=== PATIENT | female | born 1935 | race Caucasian/White ===

== ENCOUNTER → 2016-05-29 | Outpatient (CLI) | payer OTHER ==
[~2016-05-29] MED LIST: ADULT LOW DOSE81 MG PO; ALEVE220 M1 PO; ASPIR 8181 MG PO; BISCOLAX10 MG RC; CALCIUM 500 +1 EAC5 PO; CARDIZEM CD300 MG PO; CELEXA 10 MG TA10 M1 PO; CELEXA 20 MG TA20 MG PO; FLEXERIL PO; IRON325 M1 PO; LEVAQUIN 500 M500 M2 PO; LISINOPRIL10 MG PO; LISINOPRIL20 MG PO; MAGNESIUM100 MG PO; MELOXICAM7.5 MG PO; MOBIC15 MG PO; MULTIVITAMINS PO; NORCO 10-325 T1 EACH PO; NORVASC 5 MG TAB5 MG PO; OMEGA-31000 MG PO; PRAVACHOL40 MG PO; VITAMIN D1000 UNI1 PO; XARELTO10 MG PO; [UNRECOGNIZED DRUG - OTHER] PO
== END ==
LOC: RAD 04-25 11:22
DX: Z12.31 Encounter for screening mammogram for malignant neoplasm of breast (principal)

== ENCOUNTER 2017-04-17 12:53 | Inpatient (IN) | payer OTHER ==
[~2017-04-17] VITALS: Ht 154.9 cm; Wt 79.3 kg
--- NOTE | ~2017-04-17 | 2DMMODE ---
[facility] [address] [place] [address] 2 D/M-MODE ECHOCARDIOGRAM Name: JAMESON REEVES Room #: 419-P [facility] IN ..#: [id number] Admission: 04/17/17 Attend Phys: Gio Dudley, Discharge: Date of : 33 Date of Service: 04/18/17 1024 Report #: [id number] THIS REPORT FOR: //name// APPROVED REPORT Study performed: 04/18/2017 09:52:04 EXAM: Comprehensive 2D, Doppler, and color-flow Echocardiogram Patient Location: Echo lab Room #: 419 Status: routine BSA: 1.76 HR: 64 bpm BP: 158/78 mmHg Other Information Study Quality: Adequate Indications CVA. HX: TIAS, HTN, HLP Echo Enhancing Agent Indication: Rule out Shunt Agent(s) / Amount(s) Used: Agitated Saline 6 cc 2D Dimensions RVDd: 27.34 mm LVEF(%): 53.68 (>50%) IVSd: 10.16 (7-11mm) LVOT Diam: 20.19 (18-24mm) LVDd: 43.44 mm PWd: 8.88 (7-11mm) Ascending Ao: 37.57 (22-36mm) LVDs: 31.49 (25-40mm) Aortic Root: 36.26 mm Pathak's LVEF: 53.68 % Volumes Left Atrial Volume (Systole) Single Plane 4CH: 39.40 mL Single Plane 2CH: 44.73 mL LA ESV Index: 26.00 mL/m2 Aortic Valve AoV Peak Eddi.: 1.73 m/s AO Peak Gr.: 11.99 mmHg LVOT Max P.58 mmHg LVOT Max V: 1.28 m/s ARNAV Vmax: 2.38 cm2 [facility] [place] [address] 2 D/M-MODE ECHOCARDIOGRAM Name: JAMESON REEVES Room #: 419-P [facility] IN ..#: [id number] Admission: 04/17/17 Attend Phys: Gio Dudley, Discharge: Date of : 33 Date of Service: 04/18/17 [facility] Report #: [id number] Mitral Valve E/A Ratio: 0.7 MV Decel. Time: 297.39 ms MV E Max Eddi.: 0.90 m/s MV A Eddi.: 1.21 m/s MV PHT: 86.24 ms IVRT: 83.04 ms Pulmonary Valve PV Peak Eddi.: 1.07 m/s PV Peak Gr.: 4.56 mmHg Pulmonary Vein P Vein S: 0.74 m/s P Vein A: 0.36 m/s P Vein D: 0.49 m/s P Vein A Dur.: 124.6 msec P Vein S/D Ratio: 1.51 Tricuspid Valve TR Peak Eddi.: 2.25 m/s RAP Estimate: 5.00 mmHg TR Peak Gr.: 20.16 mmHg PA Pressure: 25.00 mmHg Left Ventricle The left ventricle is normal size. There is normal LV segmental wall motion. There is normal left ventricular wall thickness. Left ventricular systolic function is normal. LVEF is 60%. Mild diastolic dysfunction is present (impaired relaxation pattern). Right Ventricle The right ventricle is normal size. The right ventricular systolic function is normal. Atria The left atrium size is normal. No shunting noted by contrast bubble injection. The right atrium size is normal. Aortic Valve Aortic valve is grossly normal in structure. No aortic regurgitation is present. There is no aortic valvular stenosis. Mitral Valve Mitral valve leaflets are mildly thickened. Trace to mild mitral regurgitation. Tricuspid Valve The tricuspid valve is normal in structure. Trace tricuspid regurgitation. Estimated PAP is 25mmHg. [facility] [address] [place] [address] 2 D/M-MODE ECHOCARDIOGRAM Name: JAMESON REEVES Room #: 419-P [facility] IN ..#: [id number] Admission: 04/17/17 Attend Phys: Gio Dudley, Discharge: Date of : 33 Date of Service: 04/18/17 1024 Report #: [id number] Pulmonic Valve The pulmonary valve is normal in structure. Trace pulmonic regurgitation. Great Vessels The aortic root is normal in size. Ascending aorta measures at the upper limits of normal. IVC is normal in size and collapses >50% with inspiration. Pericardium There is no pericardial effusion. <Conclusion> Left ventricular systolic function is normal. There is normal LV segmental wall motion. LVEF is 60%. Mild diastolic dysfunction No shunting noted by contrast bubble injection. Aortic valve is grossly normal in structure. No aortic valvular stenosis or insufficiency. Mitral valve leaflets are mildly thickened. Mild mitral insufficiency Trace tricuspid regurgitation. Estimated pulmonary artery pressure of 25mmHg. There is no pericardial effusion. <ELECTRONICALLY SIGNED> By: Prashant Avalos MD, FACC 04/18/17 1024 1024 1024 Prashant Avalos MD, FACC /INF
--- NOTE | ~2017-04-17 | HC ---
[facility] [place] [address] CONSULTATION Name: JAMESON REEVES Room #: 419-P ADM IN M.R.#: [id number] Admission: 04/17/17 Attend Phys: Gio Dudley MD Discharge: Date of : 34 Report #: [id number] THIS REPORT FOR: //name// CC: Enrique Dudley DATE OF SERVICE: 04/17/2017 HISTORY OF PRESENT ILLNESS: This is an 81-year-old female patient who was evaluated by me for acute onset of short-term memory problems. The patient's speech was intact. It came spontaneously without any trauma. There was no associated focal motor deficit with it. The deficit was localized to short-term memory. REVIEW OF SYSTEMS: This patient had an episode of TIA. That mainly manifested at the left-sided numbness. She was worked up at [facility], I do not have any records. She used to be on aspirin and statin. Statin was recently discontinued because of muscle pain. She is otherwise functional. In fact, she was able to drive home after the onset of this memory disturbances. The main thing she could not remember was her code. As mentioned above, speech was intact. She denies any prior history of stroke. She usually follows up with Dr. Greer, who is her primary care doctor. She denies any new eye, ENT, cardiac, respiratory, GI, , musculoskeletal, constitutional, dermatological, hematological, psychiatric and throat symptoms associated with present symptomatology. PAST MEDICAL HISTORY: Positive for TIA. FAMILY HISTORY: Negative for early age stroke. SOCIAL HISTORY: She has a very supportive family and two sons were here and they provided most of the history. PHYSICAL EXAMINATION: Indicate that this patient is alert, responsive, able to follow simple and complex command, but she has very poor short-term memory. Her long-term memory is relatively intact. She is able to tell the age and date of of her two sons present, but short-term memory is very poor. Speech looks entirely normal. She is able to name the President. Cranial nerve examination 2-12 was unremarkable. She has symmetrical strength, sensation, reflexes and tones in all 4 extremities. There is no meningeal sign. There is no carotid bruit. There is no cerebellar sign. Her pulses are palpable. She has no edema, cyanosis or jaundice. Cardiac examination is unremarkable. Respiratory examination does not show any respiratory difficulty or rhonchi. She has no thyroid mass. She is a reasonably well-developed individual who does not have any dysmorphic features of eyes, ears and face. Her vision and hearing looks adequate. Blood pressure is 174/81. She is hypertensive. She takes her blood [facility] [address] [place] [address] CONSULTATION Name: JAMESON REEVES Gregory Room #: 419-P [facility] IN M.R.#: [id number] Admission: 04/17/17 Attend Phys: Gio Dudley MD Discharge: Date of : 34 Report #: [id number] pressure very rarely. Respirations 18, pulse is 70, temperature 97.8. LABORATORY DATA: Her white count is 5.4, potassium is 3.3. She did have a CT scan of the head, which was reviewed and it showed no intracranial abnormality. IMPRESSION: The patient's clinical presentation is consistent with a transient global amnesia. Possibility of transient ischemic attack is there, but looks more like transient global amnesia. She does have some other abnormality like GFR being high. Reviewing the record, it looks like she was or is on Xarelto. I need to go back and talk to the patient about the reason for that and confirm that. I also need to ask her how much alcohol she drank. I discussed their options in that regard and I told them the diagnosis is presumptive and I discussed their options, which Emergency Room physician has already discussed. They want to continue to watch this patient to see if she becomes better. We will do that. RECOMMENDATIONS: 1. I will go ahead and get an MRI of the brain done. 2. I will get an EEG done. 3. If she continues to become better, we may not have to do much more workup. If she does not become better or MRI shows any stroke, then we may have to do further workup. She does have some minor electrolyte abnormality, which needs to be corrected and I will also get an EEG done to make sure there is no nonconvulsive seizures in this patient. Thank you very much for this referral. <ELECTRONICALLY SIGNED> By: Jesus Pitts MD 04/18/17 1039 1427 [id number] Jesus Pitts MD /nt
--- NOTE | ~2017-04-17 | EKG ---
[address] [place] [address] ELECTROCARDIOGRAM REPORT Name: VALENCIALINDAJAMESON A Room #: 419-P ADM IN M.R.#: [id number] Admission: 04/17/17 Attend Phys: Gio Dudley MD Discharge: Date of : 34 Report #: [id number] THIS REPORT FOR: //name// [facility] ED Test Date: 2017-04-17 Test Time: 14:13:33 Pat Name: JAMESON REEVES Department: Room: [facility] Gender: F Supply Chain Systems Manager: [facility] : 1935 Requested By: Simone Castellon Order Number: [id number] MD: Prashant Avalos Measurements Intervals [place] Rate: 64 P: 45 WV: 235 QRS: -10 QRSD: 89 T: 5 QT: 418 QTc: 432 Interpretive Statements Sinus rhythm Prolonged WV interval Inferior infarct, old Compared to ECG 09/19/2009 21:25:00 First degree AV block now present Inferior Q waves are now present Electronically Signed On 04-17-2017 17:04:30 TEAM LEADER/RESEARCH PSYCHOLOGIST by Prashant Avalos [email or web address] <ELECTRONICALLY SIGNED> By: Prashant Avalos MD, [facility] 04/17/17 1704 1413 1413 Prashant Avalos MD, [facility] /EPI
[2017-04-17 13:27] LABS: ABSOLUTE NEUTROPHILS 3.3 thou/uL (1.4-8.2); BASOPHILS 0.9 % (0.0-2.0); EOSINOPHILS 2.7 % (0.0-3.0); HEMATOCRIT 38.9 % (37.0-47.0); LYMPHOCYTES 29.2 % (24.0-44.0); MCH 27.4 pg (26.0-34.0); MCHC 33.4 g/dL (28.0-37.0); MONOCYTES 6.6 % (1.0-8.0); PLATELET COUNT 180 thou/uL (150-400); POLYS 60.6 % (36.0-66.0); RBC 4.74 mil/uL (4.20-5.00); RDW 14.6 % (10.5-14.5); WBC 5.4 thou/uL (4.0-11.0)
[2017-04-17 13:33] VITALS: BP 174/81
[2017-04-17 13:39] LABS: ANION GAP 10 mmol/L (7-16); BUN 19 mg/dL (7-18); CALCIUM 9.3 mg/dL (8.5-10.1); CHLORIDE 104 mmol/L (98-107); CO2 26 mmol/L (21-32); CREATININE 1.2 mg/dL (0.6-1.0); GLUCOSE 168 mg/dL (74-106); POTASSIUM 3.3 mmol/L (3.5-5.1); SODIUM 140 mmol/L (136-145)
[2017-04-17 13:45] LABS: APTT 25.8 Seconds (24.5-32.8); INR 1.1
[2017-04-17 13:47] LABS: MAGNESIUM 2.1 mg/dL (1.8-2.4); SGOT 16 U/L (15-37); SGPT 23 U/L (30-65); TOTAL BILIRUBIN 0.3 mg/dL (<0.1-1.0); TOTAL PROTEIN 6.7 g/dL (6.4-8.2); TROPONIN-I < 0.04 ng/mL (<0.06)
[2017-04-17 14:47] VITALS: BP 183/77
[2017-04-17 15:45] LABS: URINE BILIRUBIN NEGATIVE (Negative); URINE BLOOD NEGATIVE (Negative); URINE CLARITY CLEAR; URINE COLOR YELLOW; URINE GLUCOSE-RANDOM* NEGATIVE (Negative); URINE KETONES NEGATIVE (Negative); URINE LEUKOCYTES-REFLEX NEGATIVE (Negative); URINE NITRITE-REFLEX NEGATIVE (Negative); URINE PROTEIN (DIPSTICK) NEGATIVE (Negative); URINE UROBILINOGEN 0.2 E.U./dl (0.2-1.0)
[2017-04-17 15:53] LABS: AMP/METHAMP Negative (Negative); BARBITURATES Negative (Negative); BENZODIAZEPINES Negative (Negative); COCAINE Negative (Negative); METHADONE Negative (Negative); OPIATES Negative (Negative); PCP Negative (Negative)
[2017-04-17 17:20] VITALS: BP 190/72
[2017-04-17 19:27] VITALS: BP 175/86
[2017-04-18 04:29] VITALS: BP 156/12
[2017-04-18 07:47] VITALS: BP 158/78
[2017-04-18 15:34] VITALS: BP 158/78
== END 2017-04-18 16:28 | disposition home or self-care (01) | DRG 69 ==
LOC: ER 12:53 → 4E 13:58 → EROBS 13:58 → 4E 15:34 → ENTRNSPT 04-18 15:58 → 4E 04-18 16:28
PROVIDERS: Emergency Medicine
DX: G45.9 Transient cerebral ischemic attack, unspecified (principal); I10 Essential (primary) hypertension; F32.9 Major depressive disorder, single episode, unspecified; E78.00 Pure hypercholesterolemia, unspecified; Z66 Do not resuscitate; I50.810 Right heart failure, unspecified; G45.4 Transient global amnesia; Z88.8 Allergy status to other drugs, medicaments and biological substances
CPT/HCPCS: 10183

== ENCOUNTER → 2017-06-23 | Outpatient (CLI) | payer OTHER | LOC: RAD 01:09 | DX: Z12.31 Encounter for screening mammogram for malignant neoplasm of breast (principal) ==

== ENCOUNTER → 2018-07-01 | Outpatient (CLI) | payer OTHER | LOC: RAD 02:30 | DX: Z12.31 Encounter for screening mammogram for malignant neoplasm of breast (principal) ==

== ENCOUNTER 2018-11-08 11:17 | Emergency (ER) | payer OTHER ==
[~2018-11-08] VITALS: Ht 154.9 cm; Wt 72.6 kg
== END 2018-11-08 12:35 | disposition home or self-care (01) ==
LOC: ER 11:17
DX: S83.91XA Sprain of unspecified site of right knee, initial encounter (principal); M17.11 Unilateral primary osteoarthritis, right knee; I10 Essential (primary) hypertension; F32.9 Major depressive disorder, single episode, unspecified; E78.00 Pure hypercholesterolemia, unspecified; Z96.651 Presence of right artificial knee joint; Z98.890 Other specified postprocedural states; Z96.612 Presence of left artificial shoulder joint; Z91.018 Allergy to other foods; Z88.6 Allergy status to analgesic agent; X50.0XXA Overexertion from strenuous movement or load, initial encounter; Y92.89 Other specified places as the place of occurrence of the external cause; Y93.89 Activity, other specified; Y99.8 Other external cause status

== ENCOUNTER → 2019-08-04 | Outpatient (CLI) | payer OTHER | LOC: BC 08:19 | DX: Z12.31 Encounter for screening mammogram for malignant neoplasm of breast (principal) ==

== ENCOUNTER → 2020-07-06 | Outpatient (CLI) | payer OTHER ==
[~2020-07-06] MED LIST changes: +ASPIRIN EC81 M1 PO; +MULTIVITAMINS1 EAC6 PO; +NORVASC5 MG PO; +PRAVACHOL 20 MG20 M1 PO; +VITAMIN D350 MC3 PO
[2020-07-06 09:45] LABS: URINE BILIRUBIN NEGATIVE (Negative); URINE BLOOD NEGATIVE (Negative); URINE CLARITY CLEAR; URINE COLOR YELLOW; URINE GLUCOSE-RANDOM* NEGATIVE (Negative); URINE KETONES NEGATIVE (Negative); URINE LEUKOCYTES-REFLEX NEGATIVE (Negative); URINE NITRITE-REFLEX NEGATIVE (Negative); URINE PROTEIN (DIPSTICK) NEGATIVE (Negative); URINE SPECIFIC GRAVITY >= 1.030 (1.005-1.035); URINE UROBILINOGEN 0.2 E.U./dl (0.2-1.0)
[2020-07-06 09:47] LABS: HEMATOCRIT 38.3 % (37.0-47.0); HEMOGLOBIN 12.7 gm/dL (12.0-15.0); MCH 27.3 pg (26.0-34.0); MCHC 33.1 g/dL (28.0-37.0); MCV 82.6 fL (80.0-100.0); RBC 4.63 mil/uL (4.20-5.00); RDW 14.4 % (10.5-14.5); WBC 4.4 thou/uL (4.0-11.0)
[2020-07-06 10:05] LABS: INR 1.02; PROTIME 11.1 Seconds (10.5-12.1)
[2020-07-06 10:07] LABS: ALBUMIN 3.6 g/dL (3.4-5.0); CALCIUM 8.9 mg/dL (8.5-10.1); CREATININE 1.2 mg/dL (0.6-1.0); POTASSIUM 3.9 mmol/L (3.5-5.1)
--- NOTE | 2020-07-06 13:03 | EKG ---
[place] [address] [facility] [place] [address] ELECTROCARDIOGRAM REPORT Name: JAMESON REEVES LUIS ALBERTO Room #: REG [facility]#: [id number] Admission: 07/06/20 Attend Phys: Wyatt Balderas MD Discharge: Date of : 34 Report #: [id number] [facility] Test Date: 2020-07-06 Test Time: 09:18:19 Pat Name: JAMESON REEVES Department: Room: Gender: F Vehicle Calibration Engineer: Darrian SHULTZ : 1935 Requested By: Wyatt Balderas Order Number: [id number] : Justo Singer Measurements Intervals [place] Rate: 65 P: 13 SD: 209 QRS: -4 QRSD: 93 T: 17 QT: 441 QTc: 459 Interpretive Statements Sinus rhythm Low voltage, precordial leads Compared to ECG 04/17/2017 14:13:33 Low QRS voltage now present First degree AV block no longer present Myocardial infarct finding no longer present Electronically Signed On 07-06-2020 13:03:18 CDT by Justo Singer [email or web address] <ELECTRONICALLY SIGNED> By: Justo Singer MD, [facility] 07/06/20 1303 7 7 Justo Singer MD, [facility] /EPI
== END ==
LOC: LAB 08:07
PROVIDERS: ATTEND Orthopaedic Surgery
DX: Z01.812 Encounter for preprocedural laboratory examination (principal); Z20.822 Contact with and (suspected) exposure to COVID-19; M17.11 Unilateral primary osteoarthritis, right knee

== ENCOUNTER 2020-07-12 11:21 | Observation (INO) | payer OTHER ==
[~2020-07-12] VITALS: Ht 154.9 cm
--- NOTE | ~2020-07-12 | O ---
[facility] [place] [address] OPERATIVE REPORT Name: JAMESON REEVES Room #: 150-5 [facility] M.R.#: [id number] Admission: 07/12/20 Attend Phys: Wyatt Balderas MD Discharge: Date of : 34 Report #: [id number] THIS REPORT FOR: cc: Enrique Greer MD, John H. MD Abraham,Wyatt Persaud MD ~ DOC #: [id number] Wyatt Balderas MD DATE OF SERVICE: 07/12/2020 PREOPERATIVE DIAGNOSIS: Right knee osteoarthritis. POSTOPERATIVE DIAGNOSIS: Right knee osteoarthritis. PROCEDURE: Right total knee arthroplasty using Navio robotic assistance. SURGEON: Wyatt Balderas MD. TYPESETTERS PRINTER: Eloise Watkins PA-C Indication for events and promotions assistant, throughout the case extensive retraction, manipulation of the knee was required. This is supported by my events and promotions assistant. ANESTHESIA: LMA with adductor canal block. IMPLANTS: Fuller and Nephew size 4 Journey II BCS cobalt chrome femur, size 3 tibia, size 10 constrained polyethylene, size 32 patella. TOURNIQUET TIME: 52 minutes. ESTIMATED BLOOD LOSS: 25 mL. COMPLICATIONS: None. SPECIMENS: None. CONDITION UPON LEAVING THE OR: Stable. INDICATIONS FOR PROCEDURE: The patient is an 84-year-old female with severe right knee osteoarthritis who failed conservative measures for this and after discussion with her, she elected for right total knee arthroplasty. DESCRIPTION OF PROCEDURE: Risks, benefits, alternatives, complications were discussed in detail with the patient including but not limited to risk of anesthesia, risk of damage to nerves, arteries, blood vessels, risk for infection, bleeding, risk for continued knee pain, need for reoperation. [address] [address] OPERATIVE REPORT Name: JAMESON REEVES LUIS ALBERTO Room #: 150-5 [facility] M.R.#: [id number] Admission: 07/12/20 Attend Phys: Wyatt Balderas MD Discharge: Date of : 34 Report #: [id number] Informed consent was obtained from the patient. Right knee was appropriately marked in the preoperative holding area. IV Ancef was given for preoperative antibiotics. She was brought to the operating room and placed in supine position on the operating room table. LMA anesthesia was induced without complication. Tourniquet was placed on the right thigh. Right lower extremity was prepped and draped in normal sterile fashion. Timeout was performed properly identifying the patient and procedure as well as the instrumentation and implants. All in the operating room in agreement. Right lower extremity was exsanguinated and tourniquet was inflated. Tourniquet time 52 minutes. Standard midline approach to the knee was made with a 10 blade through the skin. Dissection was taken down sharply to the fascia. Deep flaps were developed medially and laterally. A fresh 10 blade was used to make a medial parapatellar arthrotomy and the knee was inspected. There were severe tricompartment osteoarthritis with valgus deformity. ACL and PCL were removed sharply. Reference pins were placed in the femur and the tibia. The knee was digitally mapped using the PerSay robotic system. Intraoperative plan was made. We sized size 4 femur, size 3 tibia and a 10 spacer. After acceptance of the intraoperative plan, distal femoral cut was made with Navio bur. Distal femoral cutting block was pinned in place. The chamfer cuts were made. Attention was turned to the tibia. Remainder of the menisci removed with Bovie cautery. Tibial resection guide was pinned in place using Navio for placement. Tibial resection was made. Flexion and extension gaps were then checked and found to have good balance laterally in flexion and extension. expected given her underlying valgus deformity, it was felt . After this tibia was sized and found to be a size 3. Size 3 tibial trial was placed in and punched. A size 4 femoral trial was placed and the box cut was made. This was then trialed with a size 10 polyethylene. Size 10 polyethylene demonstrated 1 mm laxity laterally throughout range of motion with up to 4 mm medially. Again, it was felt we can make up for this with the final implant, 9 mm of bone was resected from the posterior surface of the patella and a size 32 patellar trial button was placed. Knee was taken through range of motion, found to be stable, found to have good patellar tracking. Trial components were removed. Bony ends were thoroughly irrigated with normal saline. A final size 3 tibia, size 4 Journey II BCS cobalt chrome femur and a size 32 patella were then cemented in place using standard cementation techniques. While cement cured, a periarticular injection consisting of morphine, ropivacaine, epinephrine, Toradol was placed around the knee joint capsule. After the cement cured, the tourniquet was deflated. Hemostasis was obtained with Bovie cautery. The final size 10 constrained polyethylene was placed. A gram of vancomycin was placed deep within the joint. The fascia was closed with 0 Vicryl. Skin was closed with 2-0 Vicryl, 3-0 Monocryl. Dermabond and LEELEE dressing was applied. The patient tolerated this procedure well and went to the recovery room under care of anesthesia postoperatively. [address] [address] OPERATIVE REPORT Name: JAMESON REEVES Room #: 150-5 [facility].R.#: [id number] Admission: 07/12/20 Attend Phys: Wyatt Balderas MD Discharge: Date of : 34 Report #: [id number] MD MIGUEL Bills/MAHESH By: 1401 1519 Wyatt Balderas MD /nt
[2020-07-12 15:30] VITALS: BP 161/83
[2020-07-12 16:16] VITALS: BP 172/87
--- NOTE | 2020-07-12 18:46 | NUR ---
ASSUMED PT CARE AROUND 1630. PT ALERT X ORIENTED X4. ON ROOM AIR.IV RT HAND. LEELEE DRS IN RT KNEE. SCDS/TEDS/POLAR ICE PACK ON.FAMILY IN THE ROOM. LIQUIDS AND SOLID FOOD TOLERATING WELL. NO C/O PAIN. FALL EDUCATION GIVEN AND FALL PRECAUTION IN PLACE. WILL CONTINUE TO MONITOR.
[2020-07-12 20:18] VITALS: BP 151/84
[2020-07-13 05:57] LABS: HEMATOCRIT 32.6 % (37.0-47.0); HEMOGLOBIN 10.7 gm/dL (12.0-15.0); MCH 27.7 pg (26.0-34.0); MCHC 32.9 g/dL (28.0-37.0); MCV 84.3 fL (80.0-100.0); RBC 3.86 mil/uL (4.20-5.00); RDW 15.2 % (10.5-14.5); WBC 8.6 thou/uL (4.0-11.0)
--- NOTE | 2020-07-13 07:26 | NUR ---
RECIEVED CARE OF THIS PATIENT AT 1900. PATIENT ALERT AND ORIENTED X4. REMAINS ON BEDREST D/T BLOCK USED. DRESSING ON R KNEE D/I. HAS TEDS, SCD'S AND POLAR ICE OVER THE LEELEE DRESSING. ABLE TO OVE FOOT AND LIFT LEG THIS AM. DENIES PAIN, SCHEDULED PAIN MED WAS GIVEN. SLEPT OFF AND ON DURING NIGHT.
[2020-07-13 08:25] VITALS: BP 127/74
--- NOTE | 2020-07-13 11:12 | NUR ---
PT ADMITTED RELATED TO RT TOTAL KNEE REPLACEMENT. CM REVIEWED CHART AND SPOKE WITH CARE TEAM. CM MET WITH PT AT BEDSIDE THIS DAY. PT APPEARED TO BE A&O X4. CM ROLE INTRODUCED. PT INDICATED SHE LIVES IN A HOUSE WITH 1 STEP TO ENTER AND ALL NEEDS ON 1 LEVEL. PT INDICATED THAT HER FURUTE GRANDSON IN LAW IS CURRENTLY STAYING WITH HER AND THAT HER CHILDREN AND GKIDS ARE SUPPORTIVE. PT INDICATED SHE HAS A FWW AND A 4WW FOR USE AT HOME. PT INDICATED THAT SHE IS SET UP WITH OP PT APPOINTMENT AT [facility] TOMORROW FRIDAY AT 12:00. PT IS TO DC HOME THIS DAY. NO OTHER CM INTERVENTION INDICATED. CASE CLOSED.
[2020-07-13 11:59] VITALS: BP 127/74
--- NOTE | 2020-07-13 13:13 | NUR ---
ASSUMED CARE OF PT AT 0700. PT WAS ADMITTED FOR POST OP TOTAL KNEE REPLACEMENT. PT HAS LEELEE DRESSING, C/D/I, JOSE LUIS HOSE BILAT CALF HIGH. POAR PACK AND ALEKSANDER WRAP. PT HAS BEEN A/OX4, SKIN INTACT, W/D/P, LUNGS CLEAR ALL ANGELO. ASSESSMENTS OTHERWISE UNREMARKABLE. PT WORKED WITH PHYS THERAPY AND JOSE A STATED SHE CAN RETURN HOME TODAY. PT HAS BEEN DISCHARGED AND PICKED UP BY SON.
== END 2020-07-13 13:18 | disposition home or self-care (01) ==
LOC: OR → TBA 11:21 → OR 11:21 → 4W 16:55
PROVIDERS: ADMIT Orthopaedic Surgery; ATTEND Orthopaedic Surgery
DX: M17.11 Unilateral primary osteoarthritis, right knee (principal); R41.3 Other amnesia; Z79.899 Other long term (current) drug therapy; Z86.73 Personal history of transient ischemic attack (TIA), and cerebral infarction without residual deficits
CPT/HCPCS: 50010; 50101; 50415; 50954; 51130; 51225; 51320; 52001; 52282; 53000; 53078; 54118; 56527; 56528; 57095; 57103; 57110; 57127; 57180; 58239; 62110; 62900; 70005

== ENCOUNTER → 2020-10-19 | Outpatient (CLI) | payer OTHER | LOC: BC 09-04 11:23 | PROVIDERS: ATTEND Family Medicine | DX: Z12.31 Encounter for screening mammogram for malignant neoplasm of breast (principal) ==